=== PATIENT | male | born 1995 | race Caucasian/White ===

== ENCOUNTER 2018-07-09 22:24 | Emergency (ER) | payer BC, OTHER ==
[~2018-07-09] VITALS: Ht 182.9 cm; Wt 83.0 kg
[2018-07-09] MEDS ORDERED: ADENOSINE 6 MG/2 ML VIAL ONE (22:37)
[2018-07-09] MEDS ORDERED: METOPROLOL TARTRATE 25 MG TABLET ONE (22:50)
[2018-07-09 23:10] VITALS: BP 141/69
[2018-07-09] MEDS: METOPROLOL TARTRATE 25 MG TABLET PO ONE (23:10)
== END 2018-07-09 23:13 | disposition home or self-care (01) ==
LOC: ER 22:25
DX: I47.1 Supraventricular tachycardia (principal); F41.9 Anxiety disorder, unspecified; Z98.890 Other specified postprocedural states
CPT/HCPCS: A4606; J0153; J7030; Z7610

== ENCOUNTER 2020-02-24 18:45 | Emergency (ER) | payer BC ==
[~2020-02-24] VITALS: Ht 182.9 cm; Wt 104.3 kg
--- NOTE | 2020-02-24 19:01 | NUR ---
patient came in to the er c/o R middle finger laceration w/ cutting fruit. not utd to tetanus shot. per ems, fainted post laceration. roomate called 911. on room air, breathing evenly and unlabored. connected to the monitor and pulse ox. kept comfortable, will continue to monitor accordingly.
--- NOTE | 2020-02-24 19:07 | NUR ---
VALENTINA QUIROZ PAC at the bed side
[2020-02-24] MEDS ORDERED: TDAP [DIPH/PERTUSSIS/TET] 0.5 ML VIAL IM ONE ×2 (19:14→19:30)
[2020-02-24] MEDS ORDERED: LIDOCAINE 1% INJ 50 ML MDV IJ ONE (19:14)
--- NOTE | 2020-02-24 19:45 | NUR ---
pt w/ r mid finger lacerations and intact stiches, provided w/ good wound care, dry dressing and finger splint. medically clear for d/c. Patient discharged to home in stable condition. Written and verbal after care instructions given. Patient verbalizes understanding of instruction.
[2020-02-24 20:05] VITALS: BP 112/57
== END 2020-02-24 19:50 | disposition home or self-care (01) ==
LOC: ER 18:47
DX: S61.212A Laceration without foreign body of right middle finger without damage to nail, initial encounter (principal); Z98.890 Other specified postprocedural states; W26.8XXA Contact with other sharp object(s), not elsewhere classified, initial encounter; Y93.89 Activity, other specified; Y92.89 Other specified places as the place of occurrence of the external cause; Y99.8 Other external cause status
CPT/HCPCS: 12002; 90471; 90715; 99283; A6403 ×2; J3490